=== PATIENT | female | born 1970 | race Caucasian/White ===

== ENCOUNTER 2019-06-15 09:00 | Outpatient (CLI) | payer BC ==
[2012-08-11 11:13] VITALS: BMI 34.6
== END 2019-06-15 10:00 | disposition home or self-care (01) ==
LOC: D.MAMMO 09:00
PROVIDERS: ATTEND Family Medicine
DX: Z12.31 Encounter for screening mammogram for malignant neoplasm of breast (principal)

== ENCOUNTER → 2019-07-18 12:30 | Outpatient (CLI) | payer BC ==
[2012-08-11 11:13] VITALS: BMI 34.6
== END | disposition home or self-care (01) ==
LOC: D.MAMMO 10:00
PROVIDERS: ATTEND Family Medicine
DX: R92.8 Other abnormal and inconclusive findings on diagnostic imaging of breast (principal)

== ENCOUNTER → 2019-10-11 07:30 | Day surgery (SDC) | payer BC, OTHER ==
[2019-10-10 15:44] LABS: HEMATOCRIT 38.9 % (36.0-48.0); HEMOGLOBIN 13.1 g/dL (12-16); MCH 32.6 pg (26.0-34.0); MCHC 33.7 g/dL (31.0-37.0); MCV 96.8 fL (80.0-100.0); MEAN PLATELET VOLUME 10.7 fL (7.4-10.4); RBC 4.02 10x6/uL (4.00-5.40); RDW 12.7 % (11.5-14.5); WBC 5.3 10x3/uL (4.8-10.8)
[~2019-10-11] VITALS: Ht 162.6 cm; Wt 88.5 kg
[~2019-10-11 07:30] MED LIST: CARBATROL300 MG PO; GEMFIBROZIL600 MG PO; HYDROCODON-ACE1 EA10 PO; KLONOPIN0.5 MG PO; OMEPRAZOLE DR 20 MG PO; ULTRAM50 MG PO
[2019-10-11 08:25] VITALS: BP 131/84; Ht 162.6 cm; Wt 88.5 kg
--- NOTE | 2019-10-11 13:18 | NUR ---
PERIPHERAL IV DC'D WITH TIP INTACT. DISCHARGE INSTRUCTIONS PROVIDED
--- NOTE | 2019-10-15 09:56 | OP ---
PATIENT NAME: LAZARO TORRES MEDICAL RECORD: [id number] :68 LOCATION:[facility] ADMISSION DATE: SURGEON: FERNANDEZ AKHTAR, LISA RICHARDSON DATE OF OPERATION: 10/11/2019 PREOPERATIVE DIAGNOSIS: Impingement syndrome of the right shoulder with rotator cuff tear. POSTOPERATIVE DIAGNOSES: Impingement syndrome of the right shoulder with rotator cuff tear plus severe biceps tendinitis. PROCEDURES: 1. Right shoulder arthroscopy with arthroscopic rotator cuff repair. 2. Arthroscopic biceps tenotomy of the right shoulder. 3. Arthroscopic distal clavicle excision done through separate incision -- 1 cm. 4. Arthroscopic subacromial decompression with acromioplasty and bursectomy. SURGEON: Lisa Presley MD ANESTHESIA: ENEIDA Thomas INTRAOPERATIVE COMPLICATIONS: None. SUMMARY OF PATHOLOGIC FINDINGS: Upon entering the patient's shoulder, diagnostic arthroscopy did reveal the patient to have a full thickness rotator cuff tear, severe biceps tendinitis with near full thickness splitting and tearing. The patient also had a downward sloping acromion with attritional changes of the coracoacromial ligament as well as grade IV chondromalacia of the distal clavicle. OPERATIVE SUMMARY IN DETAIL: After obtaining the appropriate preoperative orthopedic surgery consent as well as anesthetic consultation, evaluation and clearance, the patient was brought to the operating room and placed on the operating table in supine position. After adequate general laryngeal mask airway was administered, the patient was placed in a left lateral decubitus position. All pressure points were well padded to include down leg peroneal pad as well as axillary roll. The patient was held firmly to the operating table using the vacuum pack suction system. Right upper extremity and shoulder were then prepped and draped in routine sterile fashion. The arm was held in the Arthrex traction boom at 30 degrees of forward flexion, 30 degrees of abduction with 10 pounds of traction laterally. At this point, the appropriate timeout was taken and agreed upon by everybody given the patient's unique identifiers. Arthroscopy established in the glenohumeral joint from the posterior portal. Anterior portal was established in the anterior safe interval. Transrotator cuff portal was established, through which the rotator cuff was debrided back to viable appearing rotator cuff elements and the supraspinatus insertion of the footprint was decorticated with a 5.0 resector. The [place] tissue ablation system was then used through the same portal to release the biceps tendon at the bicipital labral junction. Having done this, attention was then turned to the subacromial space. While in the subacromial space, the [place] tissue ablation system was utilized to denude the undersurface of the acromion of all soft tissue elements and release the coracoacromial ligament. A 5-0 barrel bur was then used to perform acromioplasty at the level of acromioclavicular joint. Having completed this, attention was turned to the distal clavicle. Under OPERATIVE REPORT [id number] LAZARO TORRES direct arthroscopic visualization, distal clavicle was excised for 1 cm. She had a large pannus of osteophytes on the inferior aspect as well as grade IV chondromalacia. Attention then turned to the rotator cuff. The rotator cuff was then repaired with a double row fixation using the double row fixation component from Arth[employer]. After the double row was applied, good fixation was achieved. A small dog ear did persist and the back suture of the lateral anchors were then utilized in an inverted mattress style fashion and anchored with a 4.75 SwiveLock from [employer]. Having completed this, final arthroscopic photos were taken and submitted in the patient's chart. Arthroscopy portals were then closed in routine interrupted fashion using 4-0 Prolene by ENEIDA Thomas. Sterile dressings were applied. The patient was awakened and taken to the recovery room in stable condition. All final needle and sponge counts were correct. TRANSINT:[id number] Voice Confirmation ID: [id number] DOCUMENT ID: [id number] FERNANDEZ AKHTAR, LISA RICHARDSON at 0956 CC: [id number] DICTATION DATE: 10/12/19 1013 RN TRANSPLANT: 10/12/19 1305 [facility] 10/11/19 [id number] [place] [address]
== END | disposition home or self-care (01) ==
LOC: D.OPS 07:30 → D.PAN 09:30 → D.OPS 15:00 → D.PAN 15:00
PROVIDERS: Anesthesiology; ATTEND Orthopaedic Surgery
DX: M75.41 Impingement syndrome of right shoulder (principal); M25.511 Pain in right shoulder; M75.121 Complete rotator cuff tear or rupture of right shoulder, not specified as traumatic; M13.811 Other specified arthritis, right shoulder; M75.21 Bicipital tendinitis, right shoulder

== ENCOUNTER → 2019-12-25 10:30 | Outpatient (CLI) | payer BC, OTHER ==
[2019-10-11 08:25] VITALS: BMI 33.5
== END | disposition home or self-care (01) ==
LOC: D.MRI 10:30
PROVIDERS: ATTEND Orthopaedic Surgery
DX: M75.121 Complete rotator cuff tear or rupture of right shoulder, not specified as traumatic (principal)

== ENCOUNTER 2020-01-17 06:25 | Day surgery (SDC) | payer BC, OTHER ==
[2020-01-16 13:54] LABS: HEMATOCRIT 40.3 % (36.0-48.0); HEMOGLOBIN 13.5 g/dL (12-16); MCH 32.6 pg (26.0-34.0); MCHC 33.5 g/dL (31.0-37.0); MCV 97.3 fL (80.0-100.0); MEAN PLATELET VOLUME 10.3 fL (7.4-10.4); RBC 4.14 10x6/uL (4.00-5.40); WBC 5.3 10x3/uL (4.8-10.8)
[~2020-01-17] VITALS: Ht 162.6 cm; Wt 94.3 kg
[2020-01-17 06:52] VITALS: BP 129/75; Ht 162.6 cm; Wt 94.3 kg
[2020-01-17] MEDS ORDERED: HYDROCODON-ACE1 EA10 PO (08:39)
--- NOTE | 2020-01-17 09:25 | OP ---
PATIENT NAME: LAZARO TORRES MEDICAL RECORD: [id number] :68 LOCATION:[facility] ADMISSION DATE: SURGEON: LISA PRESLEY MD DATE OF OPERATION: 01/17/2020 PREOPERATIVE DIAGNOSIS: 1. Recurrent impingement syndrome of the right shoulder. 2. Adhesive capsulitis of the right shoulder. PREOPERATIVE DIAGNOSES: 1. Recurrent impingement syndrome of the right shoulder. 2. Adhesive capsulitis of the right shoulder. PROCEDURES: 1. Arthroscopic subacromial decompression with bursectomy and removal of scar tissue. 2. Manipulation under anesthesia. SURGEON: Lisa Presley MD ANESTHESIA: General. INTRAOPERATIVE COMPLICATIONS: None. SUMMARY OF PATHOLOGIC FINDINGS: The patient did indeed have substantial adhesions mostly in the subacromial space and required debridement of adhesions, rotator cuff was intact and also required a manipulation. OPERATIVE SUMMARY IN DETAIL: After obtaining the appropriate preoperative orthopedic surgery consent as well as anesthetic consultation, evaluation and clearance, the patient was brought to the operating room and placed on the operating table in a supine position. After adequate general laryngeal mask airway was administered, the patient was placed in left lateral decubitus position. All pressure points well padded to include down leg peroneal pad as well as axillary roll. The patient was held firmly to the operating table using the vacuum pack suction system. Right upper extremity and shoulder were then prepped and draped in routine sterile fashion. The arm was held in the Arthrex traction boom in 30 degrees of forward flexion, 30 degrees of abduction, and 10 pounds of traction laterally. Arthroscopy was established in the glenohumeral joint from the posterior portal. The patient had some adhesions noted at this point. Intraarticularly however, there was no evidence of recurrent rotator cuff tearing. The shoulder was then manipulated both in abduction, external rotation, internal rotation, forward flexion and abduction. Having completed this, arthroscopy was then established in the glenohumeral joint. The patient did have substantial amount of scar tissue. This was debrided for repeat subacromial decompression with portions of residual overgrowth of the distal acromion. Having completed this, arthroscopy portals were closed in routine interrupted fashion using 4-0 Prolene. Sterile dressings were applied. The patient was awakened and taken to recovery room in stable condition. All final needle and sponge counts were correct. TRANSINT:[id number] Voice Confirmation ID: [id number] DOCUMENT ID: [id number] OPERATIVE REPORT [id number] SELF,LAZARO PRESLEY MD, LISA RICHARDSON at 0925 CC: [id number] DICTATION DATE: 01/17/20840 RADIAL SAW OPERATOR: 01/17/20 0853 [facility] [address] [id number]
--- NOTE | 2020-01-17 10:51 | NUR ---
1010 DC'D IV. CATHETER TIP INTACT. NO BLEEDING AT SITE AFTER HOLDING PRESSURE. BANDAID APPLIED.
== END 2020-01-17 10:34 | disposition home or self-care (01) ==
LOC: D.OPS 06:25 → D.PAN 10:00 → D.OPS 10:15
PROVIDERS: Anesthesiology; ATTEND Orthopaedic Surgery
DX: M75.41 Impingement syndrome of right shoulder (principal); M75.01 Adhesive capsulitis of right shoulder; M75.121 Complete rotator cuff tear or rupture of right shoulder, not specified as traumatic; M25.511 Pain in right shoulder; J45.909 Unspecified asthma, uncomplicated

== ENCOUNTER → 2020-04-18 07:31 | Outpatient (CLI) | payer BC, OTHER ==
[2020-01-17 06:52] VITALS: BMI 35.8
== END | disposition home or self-care (01) ==
LOC: D.NM 07:31
PROVIDERS: ATTEND Family Medicine
DX: R10.11 Right upper quadrant pain (principal)